=== PATIENT | female | born 1945 | race Caucasian/White ===

== ENCOUNTER → 2024-09-09 12:27 | Outpatient (CLI) | payer MEDICARE, BC, SELFPAY ==
--- NOTE | 2024-09-09 12:34 | DI.MRI.S_ITS ---
PROCEDURE: MR KNEE RT WO CON INDICATIONS: EFFUSION,RIGHT KNEE TECHNIQUE: Noncontrast sagittal PD fast spin echo and T2 fast spin echo with fat saturation, sagittal 3-D FLASH with fat saturation; coronal T1 spin echo and PD fast spin echo with fat saturation, and axial PD fast spin echo with fat saturation through the knee. COMPARISON: None. FINDINGS: Image quality: Excellent. Bones: Subchondral cyst formation with marrow edema is present at the medial and lateral articular surfaces ((13/19; 10/11; 10/15; 10/21). There is no acute fracture or dislocation. Joints: There is a small knee joint effusion. There is severe knee osteoarthritis. Multiple intra-articular bodies are present, most of which are subcentimeter in size. The largest intra-articular bodies measure 1.7 cm at the anterior-medial joint capsule (9/18) and 3.2 cm at the posterior-medial joint capsule (13/29; 9/17) in the longest dimensions. Osteophyte formation is also present at the posterior nonweightbearing femoral condyles (9/23; 9/8). Hardy's cyst: None. Menisci: There is no viable medial meniscal tissue. There is severe truncation and maceration of the lateral meniscus with complex tears throughout the anterior horn, body, posterior horn, and posterior root attachment. Cruciate ligaments: There are chronic full-thickness tears of the anterior cruciate and posterior cruciate ligaments at the midsubstance, without any evidence of normal fiber orientation. Collateral ligaments: There is low signal thickening of the medial collateral ligament complex along with chronic full-thickness tears of the deep medial meniscofemoral and meniscotibial ligaments (13/20). The lateral collateral ligament complex is normal. Popliteus Muscle/Tendon: The popliteus muscle and tendon are normal. Extensor mechanism: There is low signal thickening of the quadriceps tendon. The patellar tendon is normal. The medial and lateral patellar retinacular attachments are normal. Articular cartilage: Multifocal areas of full-thickness and near full-thickness cartilage loss are present at the medial/lateral compartments (13/21). Full-thickness cartilage loss is present at the nonweightbearing femoral condyles. Partial-thickness chondral loss is present throughout the patellofemoral compartment, most conspicuous at the lateral patellofemoral compartment. Other: No other acute findings. IMPRESSION: 1. 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 2. 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 3. Chronic full-thickness ACL and PCL tears. 4. Severe knee osteoarthritis with a small joint effusion, proliferative osteophyte formation, articular cartilage defects, and intra-articular bodies. 5. Chronic MCL sprain. 6. Mild, chronic quadriceps tendinosis. Dictated by: Rylan Sheriff M.D. on 09/10/2024 at 10:46 Approved by: Rylan Sheriff M.D. on 09/10/2024 at 10:59
== END ==
PROVIDERS: PCP Physician Assistant; Referring Provider Physician Assistant; Visit Provider Physician Assistant
DX: S83.271A Complex tear of lateral meniscus, current injury, right knee, initial encounter (principal); S83.511A Sprain of anterior cruciate ligament of right knee, initial encounter; S83.411A Sprain of medial collateral ligament of right knee, initial encounter; S83.521A Sprain of posterior cruciate ligament of right knee, initial encounter; M17.11 Unilateral primary osteoarthritis, right knee; M25.461 Effusion, right knee
CPT/HCPCS: 73721

== ENCOUNTER → 2024-11-12 14:58 | Outpatient (CLI) | payer MEDICARE, BC, SELFPAY ==
--- NOTE | 2024-11-12 15:07 | EKG_ITS ---
[address] [address] Test Date: 2024-11-12 Pat Name: Kasey Munoz Department: [facility] Room: Gender: Female Senior Medical Transcriptionist: BRUNO : 1945 Requested By: Order Number: [id number] Reading MD: Yovani Maki Measurements Intervals [place] Rate: 64 P: 72 ME: 170 QRS: -2 QRSD: 88 T: 38 QT: 408 QTc: 420 Interpretive Statements Sinus rhythm with marked sinus arrhythmia Cannot rule out Anterior infarct , age undetermined Electronically Signed On 11-14-2024 0:11:43 PDT by Yovani Maki
[2024-11-12 15:35] LABS: Add Manual Diff / Slide Review NO; Basophils Absolute Auto 100 /uL (0-100); Basophils Percent Auto 1.2 % (0-2); Eosinophils Absolute Auto 200 /uL (0-450); Eosinophils Percent Auto 2.5 % (2-4); Hematocrit 39.7 % (36-46); Hemoglobin 13.6 g/dL (12.0-16.0); Lymphocytes Absolute Auto 1700 /uL (1100-4500); Lymphocytes Percent Auto 27.5 % (25-40); Mean Corpuscular HGB Conc 34.2 % (30-36); Mean Corpuscular Hemoglobin 32.8 PG (26-34); Monocytes Absolute Auto 400 /uL (0-900); Monocytes Percent Auto 7.3 % (3-14); Neutrophils Absolute Auto 3800 /uL (1500-7000); Neutrophils Percent Auto 61.5 % (50-75); Platelet Count 249 X10^3/uL (150-400); Red Blood Cell Count 4.14 X10^6/uL (4.0-5.2); Red Cell Distribution Width 12.3 % (11.6-14.8); White Blood Cell Count 6.1 X10^3/uL (4.5-11.0)
[2024-11-12 15:49] LABS: Hemoglobin A1C% w Est Avg Glu 4.9 % (4.0-6.0)
[2024-11-12 15:55] LABS: BUN Creatinine Ratio 22.8 (6-22); Blood Urea Nitrogen 18 mg/dL (7-17); Calcium 9.9 mg/dL (8.4-10.2); Carbon Dioxide 26 mmol/L (22-32); Chloride 103 mmol/L (98-107); Estimated Glomerular Filt Rate > 60 mL/min (>60); Glucose 91 mg/dL (70-99); HEMOLYSIS < 15 (0-50); Potassium 4.3 mmol/L (3.4-5.1); Sodium 138 mmol/L (137-145)
[2024-11-12 15:58] LABS: Appearance Urine UA CLEAR; Bilirubin Urine UA NEGATIVE (NEGATIVE); Color Urine UA YELLOW; Glucose Urine UA NEGATIVE (Negative); Ketones Urine UA NEGATIVE (NEGATIVE); Leukocyte Esterase Urine UA 1+ (NEGATIVE); Nitrite Urine UA NEGATIVE (Negative); Occult Blood Urine UA NEGATIVE (Negative); Protein Urine UA NEGATIVE (Negative); Specific Gravity Urine UA <=1.005 (1.000-1.035); Urobilinogen Urine UA 0.2 E.U./dL (0.2)
[2024-11-12 16:04] LABS: Bacteria Urine Occasional (0-1); Culture Indicated Urine Specimen Cultured; RBC Urine 0-1/HPF (0-5/HPF); Squamous Epithelial Cell Urine 0-1 /HPF (0-5/HPF); Urine Volume 10mL (spun); WBC Urine 0-1/HPF (0-5/HPF)
== END ==
PROVIDERS: PCP Physician Assistant; Referring Provider Orthopaedic Surgery; Visit Provider Orthopaedic Surgery
DX: Z01.818 Encounter for other preprocedural examination (principal); N39.0 Urinary tract infection, site not specified; R73.9 Hyperglycemia, unspecified; Z01.812 Encounter for preprocedural laboratory examination
CPT/HCPCS: 36415; 80048; 81001; 83036; 85025; 87086; 93005